=== PATIENT | male | born 1965 | race Caucasian/White ===

== ENCOUNTER 2017-01-08 18:07 | Emergency (ER) | payer BC ==
[~2017-01-08] VITALS: Ht 165.1 cm; Wt 74.8 kg
[2017-01-08] MEDS ORDERED: KEFLEX500 MG PO (19:23)
[2017-01-08 19:32] VITALS: BP 162/93
== END 2017-01-08 19:34 | disposition home or self-care (01) ==
LOC: ER 18:07
DX: S61.300A Unspecified open wound of right index finger with damage to nail, initial encounter (principal); W45.8XXA Other foreign body or object entering through skin, initial encounter; Y93.89 Activity, other specified; Y92.89 Other specified places as the place of occurrence of the external cause; Y99.9 Unspecified external cause status